=== PATIENT | male | born 1955 | race Caucasian/White ===

== ENCOUNTER → 2020-08-18 13:48 | Outpatient (POV) | payer BC, SELFPAY | DX: Z00.00 Encounter for general adult medical examination without abnormal findings (principal) ==

== ENCOUNTER → 2021-08-16 09:19 | Outpatient (CLI) | payer MEDICARE, SELFPAY ==
--- NOTE | 2021-08-16 09:28 | CT_ITS ---
PROCEDURE: CT ABDOMEN PELVIS W CON CLINICAL INDICATION: LT LOWER QUAD ABD PAIN COMPARISON: No exams were available for comparison TECHNIQUE: IV Contrast: 75ML Isovue 370 Oral Contrast None Axial images obtained with sagittal and coronal reformats. All CT scans at the facility use one or more dose reduction, viz: automated exposure control, ma/kV adjustment per patient size (including targeted exams where dose is matched to indication, i.e. head), or iterative reconstruction technique. FINDINGS: LOWER THORAX: No acute finding ABDOMEN & PELVIS: The liver, spleen, and adrenal glands have an unremarkable appearance. There is a subtle area of decreased attenuation in the pancreatic head best seen on 36, 37, and 38 series 3. This could be artifactual in nature. Suggest MRI of the pancreas without and with enhancement for further evaluation. No renal or ureteral calculi. No hydronephrosis. 1.4 cm cyst along the lower portion of the left kidney. Minimal prominence of the renal pelves on both sides. No intestinal obstruction or free air. The appendix is not clearly delineated. No evidence of appendicitis or diverticulitis. Nonspecific soft tissue density in the right inguinal area which may be related to prior hernia repair. Prostate is mildly enlarged at 5.3 x 3.5 cm. There is a small left inguinal hernia containing fat. There is mild thickening of the urinary bladder wall nonspecific. There are mild degenerative changes in the lumbar spine. Scattered small hyperdense foci are present in the pelvis and hips suggesting bone islands. There is a bilocular well-circumscribed lucent lesion of the intertrochanteric portion of the left femoral neck at 12 x 18 mm and may represent a benign fibrous cortical defect.. IMPRESSION: 1. Vague low-density in the pancreatic head possibly related to artifact. Cannot exclude a pancreatic mass. Suggest MRI of the pancreas without and with contrast for further evaluation 2. Small left inguinal hernia containing fat. Prior right inguinal hernia repair. 3. Mildly enlarged prostate. 4. There is mild urinary bladder wall thickening which may be seen with incomplete distension, chronic outflow obstruction, or cystitis. 5. Other nonacute findings as described above Dictated by: Dev Ramirez MD 08/17/2021 07:53 Dev Ramirez MD in [facility] 08/17/2021 07:53
[2021-08-16 10:20] LABS: Blood Urea Nitrogen 11 mg/dl (9-20); Estimated Glomerular Filt Rate 135 ml/min (>60); GFR (African American) 163 ML/MIN (>60)
== END ==
PROVIDERS: PCP Family Medicine; Visit Provider Family Medicine
DX: R10.32 Left lower quadrant pain (principal)
CPT/HCPCS: 36415; 74177; 82565; 84520; Q9967

== ENCOUNTER → 2021-09-07 07:41 | Outpatient (CLI) | payer MEDICARE, SELFPAY ==
--- NOTE | 2021-09-07 07:53 | MR_ITS ---
PROCEDURE: MR ABDOMEN WO/W CON CLINICAL INDICATION: Possible pancreatic mass COMPARISON: CT CT ABDOMEN PELVIS W CON from 08/16/2021 TECHNIQUE: Routine multiplanar multi echo sequences are performed without and with gadolinium enhancement. MRCP images also FINDINGS: The liver, spleen adrenal glands, and pancreas have an unremarkable appearance. No pancreatic lesion apparent. There is homogeneous appearance of the pancreas with no abnormal areas of enhancement. No peripancreatic fluid collections. There are small bilateral renal cysts. No obvious renal mass. MRCP images show no evidence biliary dilatation. The pancreatic duct has an unremarkable appearance. Unremarkable appearing gallbladder. IMPRESSION: Negative MRI of the abdomen. No pancreatic lesion apparent. Dictated by: Dev Ramirez MD 09/11/2021 08:59 Dev Ramirez MD in [facility] 09/11/2021 08:59
[2021-09-07 07:58] LABS: Blood Urea Nitrogen 10 mg/dl (9-20); Estimated Glomerular Filt Rate 135 ml/min (>60); GFR (African American) 163 ML/MIN (>60)
== END ==
PROVIDERS: PCP Family Medicine; Visit Provider Family Medicine
DX: Z01.812 Encounter for preprocedural laboratory examination (principal); D37.8 Neoplasm of uncertain behavior of other specified digestive organs
CPT/HCPCS: 36415; 74183; 76376; 82565; 84520; A9576

== ENCOUNTER 2022-01-03 23:05 | Emergency (ER) | payer MEDICARE, SELFPAY ==
[2022-01-03 23:06] VITALS: BP 153/76; PULSE 70; RESP 14; TEMP 36.6; O2SAT 100; BMI 20.9
[2022-01-03 23:13] VITALS: BMI 19.5
--- NOTE | 2022-01-03 23:14 | CT_ITS ---
PROCEDURE INFORMATION: Exam: CT Head Without Contrast Exam date and time: 01/03/2022 11:14 PM Age: 66 years old Clinical indication: Dizziness; Additional info: Facial numbness, heaviness in shoulders TECHNIQUE: Imaging protocol: Computed tomography of the head without contrast. Radiation optimization: All CT scans at this facility use at least one of these dose optimization techniques: automated exposure control; mA and/or kV adjustment per patient size (includes targeted exams where dose is matched to clinical indication); or iterative reconstruction. COMPARISON: No relevant prior studies available. FINDINGS: Brain: Atrophy and chronic small vessel ischemic changes. No hemorrhage. No mass effect or midline shift. Cerebral ventricles: No ventriculomegaly. Paranasal sinuses: Visualized sinuses are unremarkable. No fluid levels. Mastoid air cells: Visualized mastoid air cells are well aerated. Bones/joints: Unremarkable. No acute fracture. Soft tissues: Unremarkable. IMPRESSION: Chronic changes in the brain but no acute intracranial abnormality.
--- NOTE | 2022-01-03 23:15 | ECG_ITS ---
APPROVED REPORT Exam: Resting ECG HR:72 bpm ECG Measurements Heart Rate 72 AXES LA 167 P 56 QRSd 87 QRS 52 QT 360 T 35 QTc 384 Conclusion SINUS RHYTHM NORMAL ECG UNCONFIRMED REPORT Electronically signed by : Brenton Leslie MD 12/05/2023 08:39:07
[2022-01-03 23:27] LABS: Basophils % 0.4 % (0.1-2.0); Eosinophils # 0.2 K/mm3 (0.0-0.4); Eosinophils % 2.2 % (0.1-12.0); Hematocrit 43.9 % (42.0-52.0); Hemoglobin 14.1 g/dL (14.1-18.0); Lymphocytes # 2.1 K/mm3 (0.7-4.5); Lymphocytes % 31.3 % (10-50); Mean Corpuscular HGB Conc 32.1 g/dL (31.8-35.4); Mean Corpuscular Hemoglobin 26.1 pg (27.0-31.2); Mean Corpuscular Volume 81.5 fl (80-94); Mean Platelet Volume 7.7 fl (7.4-10.4); Monocytes # 0.5 K/mm3 (0.1-1.0); Neutrophils # 3.9 K/mm3 (1.8-7.8); Neutrophils % 58.1 % (37.0-80.0); Platelet Count 181 K/mm3 (142-424); Red Blood Count 5.39 M/mm3 (4.60-6.20); Red Cell Distribution Width 12.9 % (11.5-17.5); White Blood Count 6.7 K/mm3 (4.8-10.8)
[2022-01-03 23:35] LABS: Alanine Aminotransferase 27 U/L (12-78); Albumin Level 4.8 g/dl (3.5-5.0); Albumin/Globulin Ratio 1.6 (1.1-1.8); Alkaline Phosphatase 64 U/L (38-126); Aspartate Amino Transferase 39 U/L (17-59); Bilirubin,Total 0.5 mg/dl (0.2-1.3); Blood Urea Nitrogen 15 mg/dl (9-20); Calcium 9.3 mg/dl (8.4-10.2); Carbon Dioxide 31 mmol/L (22.0-30.0); Chloride 100 mmol/L (98-107); Creatinine Clearance Estimated 65 mL/min (50-200); Estimated Glomerular Filt Rate 135 ml/min (>60); GFR (African American) 163 ML/MIN (>60); Glucose 108 mg/dl (74-100); Magnesium 1.9 mg/dl (1.6-2.3); Sodium 139 mmol/L (136-145); Total Protein,Serum 7.8 g/dl (6.3-8.2)
[2022-01-03 23:41] LABS: C-Reactive Protein 1.4 mg/L (0-4)
[2022-01-03 23:53] LABS: Troponin I < 0.01 ng/ml (0.00-0.034)
--- NOTE | 2022-01-03 23:58 | PC.NURSE ---
pt back from ct, updated pt's
[2022-01-04 00:01] LABS: Procalcitonin < 0.030 ng/mL (0.0-2.0)
--- NOTE | 2022-01-04 00:10 | HMH.EDNEU ---
ED Disposition Clinical Impression: Facial numbness Disposition: Home, Self-Care Condition on Discharge: Good Instructions: DI for Transient Ischemic Attack Additional Instructions: call pcp in am Referrals: Nola Fenton MD [Primary Care Provider] - Keli Edwards MD [Staff Physician] - - Critical Care Critical Care Time: No Attestation: On 01/03/22, the high probability of a clinically significant, sudden or life threatening deterioration of the following system(s) required my full and direct attention, intervention and personal management. The time I documented below is in addition to time spent performing reported procedures but includes the following listed in this critical care notation. Medical Decision Making - Medical Records Medical records reviewed: Yes: I reviewed the patient's medical records. - Abdiel Inquiry Pt receiving controlled substance: No Vital Signs: 01/03/22 23:06 Temperature 97.8 F Temperature Source Oral Pulse Rate [Right] 70 Respiratory Rate 14 Blood Pressure [Right Arm] 153/76 H Blood Pressure Mean [Right Arm] 101 02 Sat by Pulse Oximetry 100 Oxygen Delivery Method Room Air - Lab Data Lab results reviewed: Yes: I reviewed the patient's lab results. Lab Results 01/03/22 23:17: WBC 6.7, RBC 5.39, Hgb 14.1, Hct 43.9, MCV 81.5, MCH 26.1 L, MCHC 32.1, RDW 12.9, Plt Count 181, MPV 7.7, Neut % (Auto) 58.1, Lymph % (Auto) 31.3, Bee % (Auto) 8.0, Eos % (Auto) 2.2, Baso % (Auto) 0.4, Neut # (Auto) 3.9, Lymph # (Auto) 2.1, Bee # (Auto) 0.5, Eos # (Auto) 0.2, Baso # (Auto) 0.0 01/03/22 23:17: Sodium 139, Potassium 4.0, Chloride 100, Carbon Dioxide 31 H, Anion Gap 12.0, BUN 15, Creatinine 0.60 L, Estimated Creat Clear 65, Estimated GFR 135, Est GFR ( Amer) 163, Glucose 108 H, Calcium 9.3, Magnesium 1.9, Total Bilirubin 0.5, AST 39, ALT 27, Alkaline Phosphatase 64, Troponin I < 0.01, C-Reactive Protein 1.4, Total Protein 7.8, Albumin 4.8, Globulin 3.0, Albumin/Globulin Ratio 1.6 01/03/22 23:17: ESR 7 01/03/22 23:17: Procalcitonin < 0.030 Result diagrams: 01/03/22 23:17 01/03/22 23:17 Orders (Tests/Meds): ED MEDICATIONS Generic Name Dose Route Start Last Admin Trade Name Freq PRN Reason Stop Dose Admin Sodium Chloride 1,000 mls @ 999 mls/hr 01/03/22 23:15 Sod Chlor 0.9% 1000ml Bag IV 01/04/22 00:15 .Q1H1M CRISTHIAN Discontinued Medications Generic Name Dose Route Start Last Admin Trade Name Freq PRN Reason Stop Dose Admin Iopamidol 100 ml 01/04/22 00:50 01/04/22 00:51 Iopamidol-370 (76%);100ml Bottle IV 01/04/22 00:51 100 ml ONCE ONE Administration Sodium Chloride 50 ml 01/04/22 00:50 01/04/22 00:51 0.9 % Sodium Chloride 50 Ml Vial IV 01/04/22 00:51 50 ml ONCE ONE Administration Sodium Chloride 10 ml 01/04/22 00:50 01/04/22 00:51 Sodium Chloride 0.9% 10ml Syr (Rad Only) IV 01/04/22 00:51 10 ml ONCE ONE Administration ORDERS Category Date Time Status Troponin I Q3H Lab 01/04/22 02:15 Ordered Troponin I Q3H Lab 01/04/22 05:15 Ordered - CT Data CT Scan: Head, Other (cta head/neck) Time Received: 01:[address] Reviewed: Yes: I have viewed the radiologist's interpretation Preliminary Findings: Normal/NAD Medical Decision Narrative: has stable exam and xrays with lab work will need to see pcp and dr edwards Neuro HPI - General Chief Complaint: Neuro Symptoms/Deficit Stated Complaint: feels like he has had a stroke Time Seen by Provider: 01/03/22 23:15 Mode of Arrival: Family Vehicle Source of Information: Patient, Medical Record Limitations: No Limitations Description of Symptoms (Recalled from ER Triage Doc. by RN): pt states he was working to night and he had a sudden onset headache in his forehead and he had a sudden heavy feeling n the leftside of his face as well as in his shoulders pt states he also had ringing in the ears - History of Present Illness HPI Narrative: headache with lt fa
--- NOTE | 2022-01-04 00:22 | CT_ITS ---
PROCEDURE INFORMATION: Exam: CT Angiography Neck With Contrast Exam date and time: 01/04/2022 12:22 AM Age: 66 years old Clinical indication: Other: Dizziness; Additional info: Poss CVA TECHNIQUE: Imaging protocol: Computed tomography angiography of the neck with contrast. 3D rendering (Not supervised by radiologist): MIP and/or 3D reconstructed images were created by the technologist. Radiation optimization: All CT scans at this facility use at least one of these dose optimization techniques: automated exposure control; mA and/or kV adjustment per patient size (includes targeted exams where dose is matched to clinical indication); or iterative reconstruction. Contrast material: ISOVUE; Contrast volume: 100 ml; Contrast route: INTRAVENOUS (IV); COMPARISON: CT HEAD/BRAIN WO CON 01/03/2022 11:48 PM FINDINGS: Right common carotid artery: No stenosis. No dissection or occlusion. Right internal carotid artery: No stenosis of the extracranial segment. No dissection or occlusion. Right external carotid artery: No occlusion or stenosis of the origin. Left common carotid artery: No stenosis. No dissection or occlusion. Left internal carotid artery: No stenosis of the extracranial segment. No dissection or occlusion. Left external carotid artery: No occlusion or stenosis of the origin. Right vertebral artery: Dominant right vertebral artery. No stenosis. No dissection or occlusion. Left vertebral artery: No stenosis. No dissection or occlusion. Soft tissues: Normal. No significant soft tissue swelling. Bones/joints: No acute fracture. IMPRESSION: No stenosis or occlusion. REFERENCES: NASCET CRITERIA. The degree of internal carotid artery stenosis is based on NASCET criteria. Normal is no stenosis. Mild is less than 50% stenosis. Moderate is 50-69% stenosis. Severe is 70% to 99% stenosis. Total occlusion is no detectable patent lumen.
--- NOTE | 2022-01-04 00:22 | CT_ITS ---
PROCEDURE INFORMATION: Exam: CT Angiography Head With Contrast, Arteriography Exam date and time: 01/04/2022 12:22 AM Age: 66 years old Clinical indication: Other: Dizziness; Additional info: Poss CVA TECHNIQUE: Imaging protocol: Computed tomography angiography of the head with contrast. Exam focused on the arteries. 3D rendering (Not supervised by radiologist): MIP and/or 3D reconstructed images were created by the technologist. Radiation optimization: All CT scans at this facility use at least one of these dose optimization techniques: automated exposure control; mA and/or kV adjustment per patient size (includes targeted exams where dose is matched to clinical indication); or iterative reconstruction. Contrast material: ISOVUE; Contrast volume: 100 ml; Contrast route: INTRAVENOUS (IV); COMPARISON: CT HEAD/BRAIN WO CON 01/03/2022 11:48 PM FINDINGS: ANTERIOR CIRCULATION: Right internal carotid artery: Unremarkable. Intracranial segment is patent with no significant stenosis. No aneurysm. Right middle cerebral artery: Unremarkable. No occlusion or significant stenosis. No aneurysm. Right anterior cerebral artery: Unremarkable. No occlusion or significant stenosis. No aneurysm. Left internal carotid artery: Unremarkable. Intracranial segment is patent with no significant stenosis. No aneurysm. Left middle cerebral artery: Unremarkable. No occlusion or significant stenosis. No aneurysm. Left anterior cerebral artery: Unremarkable. No occlusion or significant stenosis. No aneurysm. POSTERIOR CIRCULATION: Right vertebral artery: Dominant right vertebral artery. No occlusion or significant stenosis. No aneurysm. Left vertebral artery: Unremarkable. No occlusion or significant stenosis. No aneurysm. Basilar artery: Unremarkable. No occlusion or significant stenosis. No aneurysm. Right posterior cerebral artery: Unremarkable. No occlusion or significant stenosis. No aneurysm. Left posterior cerebral artery: Unremarkable. No occlusion or significant stenosis. No aneurysm. Brain: No definite mass, mass effect, or midline shift. Cerebral ventricles: No ventriculomegaly. Bones/joints: Unremarkable. No acute fracture. Soft tissues: Unremarkable. IMPRESSION: No large vessel stenosis or occlusion.
[2022-01-04 00:28] LABS: Erythrocyte Sedimentation Rate 7 mm/hr (0-20)
--- NOTE | 2022-01-04 01:45 | PC.NURSE ---
upper denture, purse, and cell phone were given to family.
[2022-01-04 02:13] VITALS: BP 141/72; PULSE 69; RESP 14; TEMP 36.6; O2SAT 100
== END 2022-01-04 02:15 | disposition home or self-care (01) ==
PROVIDERS: Emergency Provider Emergency Medicine; PCP Family Medicine
DX: R20.0 Anesthesia of skin (principal); R51.9 Headache, unspecified; I10 Essential (primary) hypertension; Z88.2 Allergy status to sulfonamides
CPT/HCPCS: 70450; 70496; 70498; 80053; 83735; 84145; 84484; 85025; 85651; 86140; 93005; 96365; 99283; 99284; Q9967

== ENCOUNTER → 2022-01-04 16:36 | Outpatient (CLI) | payer MEDICARE, SELFPAY ==
[2022-01-04 17:58] LABS: Basophils % 0.3 % (0.1-2.0); Eosinophils # 0.1 K/mm3 (0.0-0.4); Eosinophils % 0.9 % (0.1-12.0); Hematocrit 41.5 % (42.0-52.0); Hemoglobin 13.3 g/dL (14.1-18.0); Lymphocytes % 18.8 % (10-50); Mean Corpuscular HGB Conc 32.1 g/dL (31.8-35.4); Mean Corpuscular Hemoglobin 26.2 pg (27.0-31.2); Mean Corpuscular Volume 81.4 fl (80-94); Mean Platelet Volume 7.6 fl (7.4-10.4); Monocytes # 0.3 K/mm3 (0.1-1.0); Monocytes % 6.1 % (1.7-9.3); Neutrophils % 73.8 % (37.0-80.0); Platelet Count 171 K/mm3 (142-424); Red Cell Distribution Width 12.9 % (11.5-17.5); White Blood Count 5.4 K/mm3 (4.8-10.8)
[2022-01-04 18:25] LABS: Erythrocyte Sedimentation Rate 15 mm/hr (0-20)
[2022-01-06 12:14] LABS: RA Latex Turbid. <10.0 IU/mL (<14.0)
[2022-01-06 19:17] LABS: Antinuclear Antibodies, IFA Negative (.)
== END ==
PROVIDERS: PCP Family Medicine; Visit Provider Family Medicine
DX: G44.1 Vascular headache, not elsewhere classified (principal); R20.0 Anesthesia of skin
CPT/HCPCS: 36415; 81241; 84550; 85025; 85651; 86038; 86431

== ENCOUNTER → 2022-01-17 07:42 | Outpatient (CLI) | payer MEDICARE, SELFPAY ==
--- NOTE | 2022-01-17 | CA_ITS ---
FINAL REPORT TECHNIQUE: Color Doppler, duplex Doppler and anderson scale sonography of the bilateral neck arterial vasculature was performed. Velocities were measured in the carotid arteries. Stenosis evaluation based on the validated velocity criteria. CLINICAL HISTORY: TIA- Lt arm numbness, tingling with weakness, HLD FINDINGS: The peak systolic velocity of the right common carotid artery is 83 cm/s. The peak systolic velocity of the right internal carotid artery is 106 cm/s and end diastolic velocity 41 cm/s. The ICA/CCA ratio is 1.2. A mild amount of plaque is present. The right external carotid artery is patent. The right vertebral artery is patent with antegrade flow. The peak systolic velocity of the left common carotid artery is 77 cm/s. The peak systolic velocity of the left internal carotid artery is 131 cm/s and end diastolic velocity 55 cm/s. The ICA/CCA ratio is 1.7. A mild amount of plaque is present. The left external carotid artery is patent.The left vertebral artery is patent with antegrade flow. IMPRESSION: Less than 50% bilateral carotid stenosis. Bilateral patent vertebral arteries with antegrade flow. Reviewed, Interpreted and Dictated by Ramsey Villavicencio III, MD Transcribed by Chary Limon Authenticated by Ramsey Villavicencio III, MD on 01/17/2022 09:50:55 AM [facility]
--- NOTE | 2022-01-17 | CA_ITS ---
APPROVED REPORT EXAM: Comprehensive 2D, Doppler, and color-flow Echocardiogram Management Assistant: SONIA Mario, RVS Ht: 6 ft 0 in Wt: 155lbs BSA: 1.91 BP: 134/77 mmHg Indications: TIA, dizziness, lt arm tingling sensation, lt arm weakness, numbness 2D Dimensions Aortic Root 3.75 cm LA Volume 49.60 mL Left Atrium 2.78 cm LA Volume Index 26.00 mL/m2 (M/F) 16-34 LVOT 1.80 cm (M/F) 1.5-2.5 Ascending Aorta 3.66 cm M-Mode Dimensions RVDd 2.51 cm (0.9-2.6) LA Diam 2.99 cm (1.9-4.0) LVDd 5.19 cm (3.5-5.7) Ao Diam 3.83 cm (2.0-3.7) LVDs 2.66 cm (3.5-5.7) IVSd 1.07 cm (0.6-1.1) PWd 0.93 cm (0.6-1.1) EF (Teich) 78.00% EPSs 0.22 cm FS 46.80% EDV (Teich) 118.20 mL TAPSE 2.67 (<1.7) ESV (Teich) 26.00 mL LV Diastology E Decel Time 147.00 (160-240 msec) E/A Ratio 0.95 MED E' 8.60 (< 7 cm/sec) MED A' 11.00 cm/s E'/MED E' Ratio 7.23 (>14) LAT E' 11.50 (<10 cm/sec) LAT A' 11.10 cm/s E/LAT E' Ratio 5.41 (>14) Aortic Valve LVOT Max 110.00 (70-110 cm/s) LVOT VTI 23.60 cm AoV Peak Seamus. 102.00 (50-130 cm/s) AO Peak GR. 4.10 mmHg AO Mean GR. 2.10 (<5 mmHg) AO VTI 21.04 (18-25 cm) TRACY (VTI) 2.85 (2.5-4.5 cm2) Mitral Valve MV A Velocity 65.00 (40-130 cm/s) E/A Ratio 0.95 MV Decel. Time 147.00 (160-240 ms) MV Mean Gr. 0.70 (<2mmHg) MV PHT 43.00 ms Pulmonary Valve PV Peak Velocity 88.00 (50-150 cm/s) NJ End VMAX 178.00 cm/s Tricuspid Valve TR P. Velocity 217.00 cm/s RAP Estimate 10.00 mmHg RVSP 28.80 mmHg Left Ventricle Left atrium is mildly enlarged, left ventricle is normal size, mild concentric left ventricular hypertrophy, visually estimated ejection fraction 55% with no regional wall motion abnormality, grade 1 diastolic dysfunction seen without tissue Doppler evidence of raise left atrial pressure. Right Ventricle Right atrium and right ventricle are mildly enlarged with normal contractility. Aortic Valve Aortic valve is minimally thickened and fibrosed, there is no aortic stenosis, there is trace aortic insufficiency. Mitral Valve Mitral valve grossly normal, there is trace mitral regurgitation. Tricuspid Valve Tricuspid grossly normal, there is trace tricuspid regurgitation, tricuspid regurgitation jet velocity is inadequate for calculation of the right ventricular systolic pressure. Pulmonic Valve Pulmonic valve is poorly visualized. Great Vessels Aortic root is normal size. Inferior vena cava is poorly visualized. Pericardium No significant pericardial effusion. Conclusion 1. Mild biatrial enlargement, normal left ventricular size, mild concentric left ventricular hypertrophy, visually estimated ejection fraction 55% with no regional wall motion abnormality, grade 1 diastolic dysfunction seen without tissue Doppler evidence of raise left atrial pressure. 2. Thickened calcified aortic valve without aortic stenosis, there is trace aortic insufficiency. 3. Trace mitral and tricuspid regurgitation. 4. No significant pericardial effusion. 5. Inferior vena cava is poorly visualized. Electronically signed by : Caden Mejias MD 01/17/2022 20:15:44
--- NOTE | 2022-01-17 07:49 | US_ITS ---
FINAL REPORT CLINICAL HISTORY: VASCULAR HEADACHE,TIA FINDINGS: ABDOMINAL AORTA ANEURYSM SCREENING HISTORY: Screening Sonographic images were obtained of the abdominal aorta and iliac arteries. The abdominal aorta measures up to 1.8 cm in greatest dimension. The iliac arteries are within normal limits. IMPRESSION: No sonographic evidence of abdominal aortic aneurysm. Reviewed, Interpreted and Dictated by Ramsey Villavicencio III, MD Transcribed by Nikki Conde Authenticated by Ramsey Villavicencio III, MD on 01/17/2022 09:19:14 AM [facility]
== END ==
PROVIDERS: PCP Family Medicine; Visit Provider Family Medicine
DX: G45.8 Other transient cerebral ischemic attacks and related syndromes (principal); G44.1 Vascular headache, not elsewhere classified
CPT/HCPCS: 76705; 93306; 93880

== ENCOUNTER → 2022-02-06 09:23 | Outpatient (CLI) | payer MEDICARE, SELFPAY ==
[2022-02-06 11:08] LABS: Blood Urea Nitrogen 14 mg/dl (9-20); Estimated Glomerular Filt Rate 135 ml/min (>60); GFR (African American) 163 ML/MIN (>60)
[2022-02-06 11:41] LABS: Thyroid Stimulating Hormone 1.52 uIU/mL (0.465-4.68)
[2022-02-06 12:16] LABS: Vitamin B12 936 pg/mL (239-931)
== END ==
PROVIDERS: PCP Family Medicine; Visit Provider Nurse Practitioner Family
DX: H93.13 Tinnitus, bilateral (principal); R42 Dizziness and giddiness; R53.1 Weakness
CPT/HCPCS: 36415; 82565; 82607; 82746; 84443; 84520

== ENCOUNTER → 2022-02-07 09:33 | Outpatient (CLI) | payer MEDICARE, SELFPAY ==
--- NOTE | 2022-02-07 09:33 | MR_ITS ---
FINAL REPORT CLINICAL HISTORY: weakness FINDINGS: Multi planar MR imaging was obtained of the cervical spine. There is abnormal decreased signal throughout the cervical discs. The vertebrae are of normal height. There is no malalignment. The cervical cord demonstrates normal signal and configuration. C2-C3: There is no evidence of significant disc bulge or protrusion. There is no significant facet hypertrophy. C3-C4: Moderate diffuse disc bulge is present with moderate bilateral neural foraminal narrowing. C4-C5: Moderate diffuse disc bulge is present. There is endplate hypertrophy. There is moderate to high-grade right and moderate left neural foraminal narrowing. C5-C6: Moderate diffuse disc bulge is present. There is endplate hypertrophy. There is moderate bilateral neural foraminal narrowing. C6-C7: There is no evidence of significant disc bulge or protrusion. There is no significant facet hypertrophy. C7-T1: There is no evidence of significant disc bulge or protrusion. There is no significant facet hypertrophy. IMPRESSION: Diffuse disc bulges at C3-4, C4-5, and C5-6 with neural foraminal compromise, most evident on the right at C4-5. Reviewed, Interpreted and Dictated by Carlos Fleming MD Transcribed by Gay Ramírez Authenticated by Carlos Fleming MD on 02/07/2022 01:53:38 PM [facility]
--- NOTE | 2022-02-07 09:33 | MR_ITS ---
FINAL REPORT CLINICAL HISTORY: vertigo, tinnitus, headache. 15prohance FINDINGS: Multiplanar MR imaging of the brain was performed without and with contrast. There is no evidence of Chiari malformation. There is mild diffuse atrophy. The brain parenchyma is otherwise homogeneous. There is no evidence of intracranial hemorrhage or mass. No abnormal extra-axial fluid collection is seen. The ventricular size is within normal limits. There is no evidence of shift of the midline structures. No area of abnormal restricted diffusion is identified. There is a large venous angioma in the medial left cerebral hemisphere well-seen on images 17 through 13 of series 10 and image 22 of series 11. No other abnormal contrast enhancement is identified. 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 Reviewed, Interpreted and Dictated by Carlos Fleming MD Transcribed by Gay Ramírez Authenticated by Carlos Fleming MD on 02/07/2022 01:53:58 PM [facility]
== END ==
PROVIDERS: PCP Family Medicine; Visit Provider Nurse Practitioner Family
DX: H93.13 Tinnitus, bilateral (principal); R42 Dizziness and giddiness; R53.1 Weakness
CPT/HCPCS: 70553; 72141; 76376; A9576

== ENCOUNTER → 2022-09-07 14:22 | Outpatient (CLI) | payer MEDICARE, SELFPAY ==
--- NOTE | 2022-09-07 14:29 | XR_ITS ---
FINAL REPORT CLINICAL HISTORY: LOW BACK PAIN FINDINGS: 5 views of the lumbar spine were obtained. There is no evidence of fracture or dislocation. The vertebral alignment is normal. There are moderate degenerative changes. There are multilevel osteophytes. Vacuum disc phenomenon is seen at L4-5 and L5-S1. No paraspinous soft tissue abnormalities identified. IMPRESSION: Degenerative changes with no acute bony abnormality. Reviewed, Interpreted and Dictated by Ramsey Villavicencio III, MD Transcribed by Nikki Conde Authenticated and [facility]
== END ==
PROVIDERS: PCP Family Medicine; Visit Provider Family Medicine
DX: M46.1 Sacroiliitis, not elsewhere classified (principal)
CPT/HCPCS: 72110

== ENCOUNTER → 2023-06-21 11:05 | Outpatient (POV) | payer MEDICARE, SELFPAY | PROVIDERS: Visit Provider Specialist/Technologist | DX: Z00.00 Encounter for general adult medical examination without abnormal findings (principal) ==

== ENCOUNTER 2023-12-03 23:39 | Emergency (ER) | payer MEDICARE, SELFPAY ==
[2023-12-03 23:41] VITALS: BP 190/100; PULSE 75; RESP 20; TEMP 36.9; O2SAT 99; BMI 22.4
--- NOTE | 2023-12-03 23:54 | XR_ITS ---
PROCEDURE INFORMATION: Exam: XR Chest Exam date and time: 12/03/2023 11:51 PM Age: 68 years old Clinical indication: Other: High blood pressure; Additional info: High blood pressure, no HX TECHNIQUE: Imaging protocol: Radiologic exam of the chest. Views: 2 views. COMPARISON: MR CERVICAL SPINE WO CON 02/07/2022 9:56 AM FINDINGS: Lungs: Unremarkable. No consolidation. Pleural spaces: Unremarkable. No pleural effusion. No pneumothorax. Heart/Mediastinum: Unremarkable. No cardiomegaly. Bones/joints: Unremarkable. IMPRESSION: No acute findings.
[2023-12-04 00:04] LABS: Chloride 101 mmol/L (98-107); Potassium 3.8 mmoL/L (3.5-5.1); Sodium 139 mmol/L (136-145)
[2023-12-04 00:05] LABS: Basophils % 0.3 % (0.1-2.0); Eosinophils # 0.2 K/mm3 (0.0-0.4); Eosinophils % 1.9 % (0.1-12.0); Hematocrit 44.2 % (42.0-52.0); Hemoglobin 14.7 g/dL (14.1-18.0); Lymphocytes # 1.7 K/mm3 (0.7-4.5); Lymphocytes % 22.5 % (10-50); Mean Corpuscular HGB Conc 33.4 g/dL (31.8-35.4); Mean Corpuscular Hemoglobin 26.9 pg (27.0-31.2); Mean Corpuscular Volume 80.7 fl (80-94); Monocytes # 0.6 K/mm3 (0.1-1.0); Monocytes % 7.2 % (1.7-9.3); Neutrophils # 5.3 K/mm3 (1.8-7.8); Platelet Count 160 K/mm3 (142-424); Red Blood Count 5.47 M/mm3 (4.60-6.20); Red Cell Distribution Width 13.5 % (11.5-17.5); White Blood Count 7.7 K/mm3 (4.8-10.8)
[2023-12-04 00:07] LABS: Alanine Aminotransferase 31 U/L (12-78); Alkaline Phosphatase 70 U/L (38-126); Anion Gap 10.8 mEq/L (5-15); Aspartate Amino Transferase 38 U/L (17-59); Bilirubin,Total 0.4 mg/dl (0.2-1.3); Blood Urea Nitrogen 21 mg/dl (9-20); Carbon Dioxide 31 mmol/L (22.0-30.0); Creatinine Clearance Estimated 75 mL/min (50-200); Estimated Glomerular Filt Rate 112 ml/min (>60); GFR (African American) 136 ML/MIN (>60)
[2023-12-04 00:09] LABS: Albumin Level 4.7 g/dl (3.5-5.0); Albumin/Globulin Ratio 1.5 (1.1-1.8); Calcium 9.1 mg/dl (8.4-10.2); Globulin 3.1 g/dL (1.3-3.2); Glucose 113 mg/dl (74-100); Total Protein,Serum 7.8 g/dl (6.3-8.2)
--- NOTE | 2023-12-04 00:21 | [facility].EDCP ---
Discharge Plan Disposition Patient Disposition: Home, Self-Care Condition: Good Prescriptions Prescriptions: New lisinopril 5 mg tablet 5 mg PO DAILY Qty: 10 0RF No Action rosuvastatin 10 mg tablet 10 mg PO .every other day meloxicam 15 mg tablet 15 mg PO DAILY Patient Comments: TAKE 1 TABLET BY MOUTH ONCE DAILY Referrals Follow up/Referrals: Nola Fenton MD [Primary Care Provider] - See instructions Activity Restrictions/Add. Instructions Additional Instructions/Restrictions: Take lisinopril as prescribed and follow-up closely with your primary care provider for continued evaluation and management. Return for any new or worsening symptoms including but not limited to worsening/sensation or continued high blood pressure, chest pain, shortness of breath, numbness or weakness particularly in 1 extremity or any new concerns arise. Clinical Impressions Clinical Impression: Hypertension Instructions Patient Instructions: High Blood Pressure (Hypertension) (Alternative Therapy), Recommendations to Help Prevent High Blood Pressure Discharge ED Provider: Rita Modi General Chief Complaint: Weakness Stated Complaint: High Blood Pressure Time Seen by Provider: 12/03/23 23:48 Mode of Arrival: Ambulatory Source of Information: Patient and Spouse Limitations: No Limitations Description of Symptoms (Recalled from ER Triage Doc. by RN): Patient states that he felt 'flushed' arounf 2300 and took his blood presssure and it was 189/73. History of Present Illness HPI narrative: Patient is a 68-year-old male with no known medical problems presenting with high blood pressure reading at home. He states that he felt flushed around 1 hour prior to arrival, took his blood pressure at this time and it was 180 systolic and he has no history of high blood pressure and therefore presented for further evaluation. He has never had high blood pressure, never taken any medications for this. He denies ever having any chest pain, shortness of breath, numbness, tingling, abdominal pain, nausea, vomiting, focal weakness though he does states he feels generally weak. He states that he feels like the weakness and his symptoms have probably been going on for 2 days but he just decided to take his blood pressure tonight. Related Data Home Medications Medication Instructions Recorded Confirmed rosuvastatin 10 mg tablet 10 mg PO .every other day 02/16/22 12/03/23 meloxicam 15 mg tablet 15 mg PO DAILY 12/03/23 12/03/23 Previous Rx's Medication Instructions Recorded lisinopril 5 mg tablet 5 mg PO DAILY hypertension #10 tabs 12/04/23 Allergies Allergy/AdvReac Type Severity Reaction Status Date / Time SULFA (SULFONAMIDE) Allergy Unknown UNKNOWN Uncoded 12/26/21 09:12 REACTION [facility] Disclaimer: The information contained in this section may have been updated after the patient was seen, as this information can be updated by other users. Social History Smoking Status: Never smoker alcohol intake: current substance use type: denies use current occupational status: employed and retired Travel in the last 8 weeks: None household members: spouse housing: house ROS Obtained: Yes All systems reviewed & no additional complaints except as documented Physical Exam General General appearance: alert and in no apparent distress Head Head exam: atraumatic and normocephalic ENT ENT exam: Present mucous membranes moist Neck Neck exam: Present normal inspection Chest Chest inspection: Present normal inspection and symmetric chest wall rise Respiratory Respiratory exam: Present normal lung sounds bilaterally; Absent respiratory distress Cardiovascular Cardiovascular exam: Present regular rate and normal rhythm Abdominal Exam Abdominal exam: Present soft; Absent tenderness Extremities Exam Extremities exam: Present normal inspection; Absent edema Neurological Exam Neurological exam: Present alert, oriented X3, CN II-XII intact and normal gait; Absent motor sensory deficit Expanded Neurological Exam Patient oriented to: Present person, place and time Speech: Present fluid speech Psychiatric Psychiatric exam: Present normal affect Skin Skin exam: Present warm and dry HEART Score HEART Score HEART Score assessment performed?: Yes History (anamnesis): Slightly suspicious ECG: Normal Age: >65 years Risk factors: No known risk factors Troponin: </= normal limit HEART Score: 2 Critical Care Critical Care Time Critical Care Time: No Medical Decision Making Medical Records Medical records reviewed: Yes I reviewed the patient's medical records. Abdiel Inquiry Pt receiving controlled substance: No Vital Signs Vital Signs: 12/03/23 23:41 12/04/23 00:27 Temperature 98.5 F Temperature Source Oral Pulse Rate 67 Pulse Rate [Radial] 75 Respiratory Rate 20 18 Blood Pressure 156/91 H Blood Pressure [Right Arm] 190/100 H Blood Pressure Mean 121 Blood Pressure Mean [Right Arm] 130 Blood Pressure Source [Right Arm] Automatic Cuff Blood Pressure Position [Right Arm] Sitting 02 Sat by Pulse Oximetry 99 99 Oxygen Delivery Method Room Air Room Air Lab Data Lab results reviewed: Yes I reviewed the patient's lab results. Labs: Lab Results 12/03/23 23:52: WBC 7.7, RBC 5.47, Hgb 14.7, Hct 44.2, MCV 80.7, MCH 26.9 L, MCHC 33.4, RDW 13.5, Plt Count 160, MPV 8.0, Neut % (Auto) 68.0, Lymph % (Auto) 22.5, Hartley % (Auto) 7.2, Eos % (Auto) 1.9, Baso % (Auto) 0.3, Neut # (Auto) 5.3, Lymph # (Auto) 1.7, Hartley # (Auto) 0.6, Eos # (Auto) 0.2, Baso # (Auto) 0.0, Sodium 139, Potassium 3.8, Chloride 101, Carbon Dioxide 31 H, Anion Gap 10.8, BUN 21 H, Creatinine 0.70, Estimated Creat Clear 75, Estimated GFR 112, Est GFR ( Amer) 136, Glucose 113 H, Calcium 9.1, Magnesium 2.0, Total Bilirubin 0.4, AST 38, ALT 31, Alkaline Phosphatase 70, Troponin I < 0.01, Total Protein 7.8, Albumin 4.7, Globulin 3.1, Albumin/Globulin Ratio 1.5 12/03/23 23:52 12/03/23 23:52 Response Orders (Tests/Meds): ED MEDICATIONS Generic Name Dose Route Start Last Admin Trade Name Freq PRN Reason Stop Dose Admin Sodium Chloride 10 ml 12/03/23 23:54 Sodium Chloride 0.9% 10ml Flush Syringe IV 01/02/24 23:53 NEEDED PRN Maintain IV Site ORDERS Category Date Time Status XR chest 2V Stat Exams 12/03/23 23:54 Completed Complete Blood Count Auto Diff Stat Lab 12/03/23 23:52 Completed Comprehensive Metabolic Panel Stat Lab 12/03/23 23:52 Completed MAG [Magnesium] Stat Lab 12/03/23 23:52 Completed Troponin I Stat Lab 12/03/23 23:52 Completed ECG initial Besson Routine Y 12/04/23 23:46 Completed MDM Narrative Medical Decision Narrative: Patient is a 68-year-old male with no prior past medical history presenting with hypertension, generalized weakness and facial flushing with high blood pressure reading 1 hour prior to arrival of 180 systolic at home and symptoms have been going on for approximately 2 days. Does not take anything for hypertension at home. Denies now or ever having any chest pain, shortness of breath, headache, numbness, tingling, focal weakness, dizziness, nausea, vomiting. Exam is overall unremarkable and no focal deficit appreciated. Differential including but not limited to hypertensive emergency, urgency, ACS, CVA, metabolic derangement. My personal review of EKG shows normal sinus rhythm at a rate of 72 without acute ischemia or infarction. Labs unremarkable including CBC and CMP which were nonactionable, chest x-ray showed no acute process. 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 Did discuss having patient follow-up closely with his primary care provider and start patient on a very low-dose of lisinopril 5 mg. First dose given this evening. Patient is agreeable with this plan, to schedule close follow-up with PCP and started on dose of lisinopril which was sent to his preferred pharmacy. Also given return precautions which patient is agreeable. Discharged in stable condition.
[2023-12-04 00:27] VITALS: BP 156/91; PULSE 67; RESP 18; O2SAT 99
[2023-12-04 00:28] LABS: Troponin I < 0.01 ng/ml (0.00-0.034)
[2023-12-04] MEDS: LISINOPRIL 5MG TABLET 5 MG PO (00:43)
[2023-12-04 00:47] VITALS: BP 159/90; PULSE 74; RESP 18; TEMP 36.8; O2SAT 96
== END 2023-12-04 00:52 | disposition home or self-care (01) ==
PROVIDERS: Emergency Provider Emergency Medicine; PCP Family Medicine
DX: R53.1 Weakness (principal); R23.2 Flushing; I10 Essential (primary) hypertension
CPT/HCPCS: 71046; 80053; 83735; 84484; 85025; 93005; 99285

== ENCOUNTER 2024-01-02 07:38 | Outpatient (CLI) | payer MEDICARE, SELFPAY ==
--- NOTE | 2024-01-02 | CA_ITS ---
FINAL REPORT TECHNIQUE: Color Doppler, duplex Doppler and anderson scale sonography of the bilateral neck vasculature was performed. Velocities were measured in the carotid arteries. Stenosis evaluation based on velocity criteria. CLINICAL HISTORY: KYARA,HTN COMPARISON: None FINDINGS: The peak systolic velocity of the right common carotid artery is 86 cm/sec and internal carotid artery 100 cm/sec. The diastolic velocity in the internal carotid artery is 33 cm/sec. The ICA/CCA ratio is 1.3. Visually, a small amount of plaque is seen. These findings are consistent with less than 50% stenosis. The external carotid artery is patent. The right vertebral artery is patent with antegrade flow. The peak systolic velocity of the left common carotid artery is 78 cm/sec and internal carotid artery 108 cm/sec. The diastolic velocity in the internal carotid artery is 43 cm/sec. The ICA/CCA ratio is 1.4. Visually, a small amount of plaque is seen. These findings are consistent with less than 50% stenosis. The external carotid artery is patent. The left vertebral artery is patent with antegrade flow. IMPRESSION: No evidence of significant carotid stenosis. Bilateral patent vertebral arteries. If indicated, CTA or MRA could further evaluate. Reviewed, Interpreted and Dictated by Ramsey Villavicencio III, MD Transcribed by Ethel Klein Authenticated and [facility]
--- NOTE | 2024-01-02 | CA_ITS ---
FINAL REPORT TECHNIQUE: Grayscale, color Doppler and duplex Doppler ultrasound of the kidneys, aorta and renal arteries was performed. Multiple velocities were measured. CLINICAL HISTORY: htn COMPARISON: None FINDINGS: Aorta velocity: 70 cm/sec Right kidney: 12 cm. No evidence of hydronephrosis or mass. Right intrarenal RI: 0.7 Right renal artery velocity: 233 cm/sec. Right RAR (Renal artery-Aortic Ratio): 3.31 Left Kidney: 11.9 cm. No evidence of hydronephrosis or mass. Left intrarenal RI: 0.65 Left renal artery velocity: 189 cm/sec. Left RAR (Renal Artery-Aortic Ratio): 2.7 IMPRESSION: Less than 60% right renal artery stenosis. Greater than 60% left renal artery stenosis. Recommend CTA or catheter angiography for further evaluation. Reviewed, Interpreted and Dictated by Ramsey Villavicencio III, MD Transcribed by Ethel Klein Authenticated and [facility] [place] [place]
== END 2024-01-02 23:59 ==
LOC: RT 07:39
PROVIDERS: PCP Family Medicine; Visit Provider Family Medicine
DX: I10 Essential (primary) hypertension; I65.23 Occlusion and stenosis of bilateral carotid arteries
CPT/HCPCS: 93880; 93976

== ENCOUNTER 2024-01-26 09:00 | Outpatient (CLI) | payer MEDICARE, SELFPAY ==
[2024-01-26 09:58] LABS: Blood Urea Nitrogen 20 mg/dl (9-20); Estimated Glomerular Filt Rate 112 ml/min (>60); GFR (African American) 136 ML/MIN (>60)
== END 2024-01-26 23:59 ==
LOC: LAB 09:02
PROVIDERS: PCP Family Medicine; Visit Provider Family Medicine
DX: I70.1 Atherosclerosis of renal artery (principal)
CPT/HCPCS: 36415; 82565; 84520

== ENCOUNTER 2024-01-29 09:11 | Outpatient (CLI) | payer MEDICARE, SELFPAY ==
--- NOTE | 2024-01-29 09:21 | CT_ITS ---
FINAL REPORT TECHNIQUE: Pre-and postcontrast images of the abdomen were performed by computed tomography. Extensive 3-D reconstruction images were performed. A CTA was performed. This study was performed with techniques to keep radiation doses as low as reasonably achievable (ALARA). Individualized dose reduction techniques using automated exposure control or adjustment of mA and/or kV according to the patient''s size were employed. CLINICAL HISTORY: ABNORMAL ABD ULTRASOUND RENAL ARTERY STENOSIS COMPARISON: None FINDINGS: ABDOMEN: The lung bases are clear. Precontrast images demonstrate no evidence of nephrolithiasis. No adrenal masses are identified. The liver, spleen and pancreas are unremarkable. CTA: There is no evidence of abdominal aortic aneurysm or dissection. There are mild vascular calcifications. There is no evidence of renal artery stenosis. The celiac and SMA are unremarkable. The PORTILLO is patent. The iliac arteries are patent. IMPRESSION: No evidence of renal artery stenosis. Reviewed, Interpreted and Dictated by Ramsey Villavicencio III, MD Transcribed by Graciela Medellin Authenticated and [facility]
[2024-01-29] MEDS: SODIUM CHLORIDE 0.9% 10ML SYR (RAD ONLY) 10 ML IV (09:37)
[2024-01-29] MEDS: 0.9 % SODIUM CHLORIDE 50 ML VIAL IV (09:37)
[2024-01-29] MEDS: IOPAMIDOL-370 (76%);100ML BOTTLE 100 ML IV (09:37)
== END 2024-01-29 23:59 ==
LOC: RAD 09:13
PROVIDERS: PCP Family Medicine; Visit Provider Family Medicine
DX: I10 Essential (primary) hypertension (principal); Z79.899 Other long term (current) drug therapy
CPT/HCPCS: 74175; Q9967

== ENCOUNTER 2024-07-14 12:04 | Outpatient (CLI) | payer MEDICARE, SELFPAY ==
--- NOTE | 2024-07-14 12:26 | CA_ITS ---
FINAL REPORT CLINICAL HISTORY: MARYCARMEN,HTN COMPARISON: None FINDINGS: Aorta velocity: 97 cm/sec Right kidney: 12.6 cm. No evidence of hydronephrosis or mass. Right intrarenal RI: 0.69 Right renal artery velocity: 298 cm/sec. Right RAR (Renal artery-Aortic Ratio): 3.07 Left Kidney: 11.9 cm. No evidence of hydronephrosis or mass. Left intrarenal RI: 0.69 Left renal artery velocity: 245 cm/sec. Left RAR (Renal Artery-Aortic Ratio): 2.53 IMPRESSION: Less than 60% left renal artery stenosis. Greater than 60% stenosis of the right renal artery. CT angiogram or postcontrast MR angiogram would be more sensitive for evaluation of possible renal artery stenosis. Reviewed, Interpreted and Dictated by Carlos Fleming MD Transcribed by Ethel Klein Authenticated and . [facility]
[2024-07-14 13:15] LABS: Albumin Level 4.3 g/dl (3.5-5.0); Anion Gap 9.8 mEq/L (5-15); Blood Urea Nitrogen 12 mg/dl (9-20); Calcium 9.3 mg/dl (8.4-10.2); Carbon Dioxide 29 mmol/L (22.0-30.0); Chloride 106 mmol/L (98-107); Estimated Glomerular Filt Rate 134 ml/min (>60); GFR (African American) 162 ML/MIN (>60); Glucose 88 mg/dl (74-100); Phosphorous 3.3 mg/dl (2.5-4.5); Potassium 4.8 mmoL/L (3.5-5.1); Sodium 140 mmol/L (136-145)
== END 2024-07-14 23:59 | disposition home or self-care (01) ==
LOC: RT 12:06
PROVIDERS: PCP Family Medicine; Visit Provider Nurse Practitioner
DX: I70.1 Atherosclerosis of renal artery (principal)
CPT/HCPCS: 36415; 80069; 93976

== ENCOUNTER 2024-08-01 08:12 | Outpatient (POV) | payer MEDICARE, SELFPAY | END 2024-08-01 23:59 | disposition home or self-care (01) | LOC: SC 08:13 | PROVIDERS: Visit Provider Nurse Practitioner | DX: Z00.00 Encounter for general adult medical examination without abnormal findings (principal) ==